=== PATIENT | female | born 1965 | race African-American/Black ===

== ENCOUNTER 2022-02-17 16:53 | Observation (INO) | payer SELFPAY ==
[2022-02-17 16:57] VITALS: BMI 34.5
[2022-02-17] MEDS ORDERED: Ondansetron PF 4 MG/2 ML Vial IVP PRN (17:04)
[2022-02-17] MEDS ORDERED: Nitroglycerin 0.4 MG TAB (25 Tab Bottle) SL PRN (17:04)
[2022-02-17] MEDS ORDERED: Senokot S 8.6-50 MG TAB PO PRN (17:04)
[2022-02-17] MEDS ORDERED: Acetaminophen 325 MG TAB PO PRN (17:04)
[2022-02-17] MEDS ORDERED: Acetaminophen 650 MG Suppository PR PRN (17:04)
[2022-02-17] MEDS ORDERED: Loperamide HCl 2 MG CAP PO PRN ×2 (17:04)
[2022-02-17] MEDS ORDERED: Ondansetron ODT 4 MG TAB PO PRN (17:04)
[2022-02-17] MEDS ORDERED: Bisacodyl 5 MG TAB PO PRN (17:04)
[2022-02-17] MEDS ORDERED: Enoxaparin Sodium 40 MG/0.4 ML SYRINGE SC SCH (18:00)
[2022-02-17] MEDS ORDERED: Aspirin 325 MG TAB PO SCH (18:00)
[2022-02-17] MEDS ORDERED: Dextrose 50% Abboject 50 ML SYRINGE SLOW IVP PRN (18:12)
[2022-02-17] MEDS ORDERED: Dextrose 5% in Water 1,000 ML IV PRN (18:12)
[2022-02-17] MEDS ORDERED: HumaLOG 300 UNITS/3 ML VIAL SC PRN (18:12)
[2022-02-17] MEDS: Sodium Chloride 0.9% 1,000 ML IV SCH (18:25)
[2022-02-17] MEDS ORDERED: Ventolin HFA Inhaler 60 PUFF INHALER INH PRN (18:28)
[2022-02-17] MEDS ORDERED: Ibuprofen 400 MG TAB PO PRN (18:30)
[2022-02-17 19:46] LABS: CRP (Inflammatory) 1.33 mg/dL (= or < 0.5); Magnesium 2.1 mg/dL (1.6-2.6); Phosphorus 3.6 mg/dL (2.3-4.7)
[2022-02-17 19:53] LABS: Troponin I Less than 0.010 ng/mL (< 0.028)
[2022-02-17] MEDS: Carvedilol 3.125 MG TAB PO SCH (20:29)
[2022-02-17] MEDS: Diclofenac 1% 100 GM GEL TP SCH (20:30)
[2022-02-17] MEDS: Famotidine 20 MG TAB PO SCH (20:30)
[2022-02-17 20:54] LABS: Bilirubin Neg (Negative); Blood, Urine Negative (Negative); Clarity Clear (Clear); Glucose, Urine (Dipstick) Normal (Negative); Ketone, Urine Negative (Negative); Leukocyte Negative (Negative); Nitrite Negative (Negative); Protein, Urine (Dipstick) Negative (Neg-Trace); Specific Gravity, Urine 1.015 (1.002-1.036); Urobilinogen Normal mg/dL (Less than 2)
[2022-02-17] MEDS ORDERED: Atorvastatin Calcium 40 MG TAB PO SCH (21:00)
[2022-02-17 21:13] LABS: Bacteria/HPF None Seen HPF (None Seen); RBC/HPF None Seen HPF (0-3); Squamous Epithelial 0-3 HPF (0-3); WBC/HPF None Seen HPF (0-3)
[2022-02-17 22:21] LABS: Hemoglobin A1c 5.7 % (4.0-6.0)
[2022-02-17 23:47] LABS: Troponin I Less than 0.010 ng/mL (< 0.028)
[2022-02-18 04:15] LABS: Hemoglobin 12.3 g/dL (12.0-15.5); Mean Corpuscular HGB CONC 34.9 g/dL (32.0-36.0); Mean Corpuscular Hemoglobin 25.3 pg (27.0-33.0); Mean Corpuscular Volume 72.4 fl (81.6-98.3); Mean Platelet Volume 10.8 fl (7.4-10.4); Platelet Count 188 10x3/uL (150-450); RBC Distribution Width 14.7 % (11.5-14.5); Red Blood Cell (RBC) Count 4.86 10x6/uL (3.90-5.03); White Blood Cell (WBC) Count 8.4 10x3/uL (3.5-10.5)
[2022-02-18 04:41] LABS: Anion Gap 13 mmol/L (10-20); BUN (Urea Nitrogen) 12 mg/dL (9.8-20.1); Calc. Creatinine Clearance 111 mL/min (70-130); Calcium 9.7 mg/dL (7.8-10.44); Carbon Dioxide 22 mmol/L (22-29); Cardiac Risk 6.5 (Less than 4.5); Chloride 109 mmol/L (98-107); Cholesterol 233 mg/dl (< 200 Desired); Estimated GFR 102; Glucose 104 mg/dL (70-105); HDL Cholesterol 36 mg/dL (>60 Neg Risk); LDL Cholesterol, Calculated 168 mg/dL; Potassium 3.7 mmol/L (3.5-5.1); Sodium 140 mmol/L (136-145); Triglycerides 146 mg/dL (Less than 150)
[2022-02-18 06:01] LABS: MDiff Complete? YES
[2022-02-18 06:02] LABS: Platelet Morphology Comment Appears Adequate
[2022-02-18 06:13] LABS: Eosinophils 3 % (0-10); Lymphocytes 42 % (21-51); Monocytes 10 % (0-10); Neutrophil 44 % (42-75)
[2022-02-18] MEDS ORDERED: Lidocaine 5% Patch TD SCH (09:00)
[2022-02-18] MEDS ORDERED: Aspirin 300 MG Suppository PR PRN (09:00)
[2022-02-18] MEDS ORDERED: Aspirin Chewable 81 MG TAB PO SCH (09:00)
[2022-02-18] MEDS ORDERED: Enoxaparin Sodium 40 MG/0.4 ML SYRINGE SC SCH (09:00)
[2022-02-18] MEDS: Famotidine 20 MG TAB PO SCH (09:15)
[2022-02-18] MEDS: Sodium Chloride 0.9% 1,000 ML IV SCH (09:15)
[2022-02-18] MEDS: Carvedilol 3.125 MG TAB PO SCH (09:16)
[2022-02-18] MEDS: Diclofenac 1% 100 GM GEL TP SCH ×2 (09:40→14:05)
[2022-02-18 14:23] VITALS: BP 153/77; TEMP 97.3
[2022-02-18] MEDS ORDERED: Transdermal Patch Removal TOP SCH (21:00)
[2022-02-20 14:38] LABS: Albumin 3.6 g/dL (2.9-4.4); Alpha 1 0.3 g/dL (0.0-0.4); Alpha 2 0.6 g/dL (0.4-1.0); Beta 1.2 g/dL (0.7-1.3); Gamma 1.4 g/dL (0.4-1.8); Globulin, Total 3.5 g/dL (2.2-3.9); M-Spike Not Observed g/dL (Not Observed)
[2022-02-20 15:14] LABS: IgA - Total IgA (Sendout) 235 mg/dL (87-352); Immunoglobulin - G (Sendout) 1486 mg/dL (586-1602); Immunoglobulin - M (Sendout) 64 mg/dL (26-217)
== END 2022-02-18 16:40 | disposition home or self-care (01) ==
LOC: CSHTELE 16:53
PROVIDERS: ADMIT Family Medicine; ATTEND Hospitalist
DX: R07.81 Pleurodynia (principal); E83.52 Hypercalcemia; D75.1 Secondary polycythemia; R79.82 Elevated C-reactive protein (CRP); I10 Essential (primary) hypertension; E78.5 Hyperlipidemia, unspecified; E11.9 Type 2 diabetes mellitus without complications; M06.9 Rheumatoid arthritis, unspecified; J44.9 Chronic obstructive pulmonary disease, unspecified; R59.0 Localized enlarged lymph nodes; D86.9 Sarcoidosis, unspecified; F17.210 Nicotine dependence, cigarettes, uncomplicated; Z79.82 Long term (current) use of aspirin; Z79.899 Other long term (current) drug therapy; Z20.822 Contact with and (suspected) exposure to COVID-19
CPT/HCPCS: 36415; 36416; 80048; 80061; 81001; 82330; 83036; 83735; 84100; 84155; 84165; 84166; 84443; 85025; 86140; 86334; 86335; 93005; 93010; 93306; G0378; J7050; U0003; U0005